=== PATIENT | female | born 1965 | race Two or more races ===

== ENCOUNTER 2023-10-24 10:19 | Emergency (ER) | payer OTHER, SELFPAY ==
[2023-10-24 10:25] VITALS: BP 138/88; PULSE 78; RESP 17; TEMP 36.6; O2SAT 98; BMI 25.1
[2023-10-24 10:36] LABS: Glucose, Whole Blood 417 mg/dL (60-115)
[2023-10-24 10:48] LABS: MANUAL DIFF FLAG NO
[2023-10-24 10:51] LABS: Venous Blood Gas Refer to POC result
[2023-10-24 10:52] LABS: Basophils Percent Auto 0.4 % (0-2); Eosinophils Percent Auto 0.4 % (0-4); Hematocrit 40.8 % (37.0-47.0); Hemoglobin 14.4 g/dl (12.0-16.0); Imm Gran Abs Auto 0.07 X10*3/uL (0.00-0.03); Imm Gran Pct Auto 1.3 % (0.0-0.4); Lymphocytes Absolute Auto 1.2 X10*3/uL (1.2-4.9); Lymphocytes Percent Auto 22.4 % (20-40); Mean Corpuscular HGB Conc 35.3 g/dl (31.0-35.0); Mean Corpuscular Hemoglobin 31.5 pg (27.0-33.0); Mean Corpuscular Volume 89.3 fL (80.0-98.0); Mean Platelet Volume 10.7 fL (9.4-12.3); Monocytes Absolute Auto 0.8 X10*3/uL (0.1-1.2); Monocytes Percent Auto 14.4 % (2-11); Neutrophils Absolute Auto 3.4 x10*3/uL (2.0-8.3); Neutrophils Percent Auto 61.1 % (45-73); Platelet Count 270 X10*3/uL (160-400); Red Blood Count 4.57 X10*6/uL (4.20-5.50); Red Cell Distribution Width 12.4 % (11.0-16.0); White Blood Count 5.5 X10*3/uL (4.8-10.8)
[2023-10-24 10:52] LABS: VBG Base Excess -2.7 mmol/L; VBG HCO3 20 mmol/L (22-26); VBG pCO2 31 mmHg; VBG pH 7.42 (7.32-7.43); VBG pO2 80 mmHg
[2023-10-24 11:04] LABS: Beta-Hydroxybutyrate 2.08 mmol/L (0.02-0.27)
[2023-10-24 11:06] LABS: Anion Gap 18 (12-20); Blood Urea Nitrogen 12 mg/dL (9-16); Calcium 9.3 mg/dL (8.4-10.2); Carbon Dioxide 19 mmol/L (22-29); Chloride 101 mmol/L (96-108); Creatinine Clr Calc Pharmacy 60.4; Estimated Glomerular Filt Rate > 60; Glucose Random 449 mg/dL (60-115); Potassium 4.1 mmol/L (3.3-5.1); Sodium 134 mmol/L (135-145)
[2023-10-24 12:24] LABS: Osmolality, Serum 306 mosm/kg (281-305)
[2023-10-24 16:44] VITALS: BP 131/72; PULSE 77; RESP 16; TEMP 37.2; O2SAT 95
--- NOTE | 2023-10-24 16:59 | ED.GENADULT ---
HPI - General Adult General Chief complaint: Recheck/Abnormal Lab/Rx Stated complaint: High Hemoglobin Level Time Seen by Provider: 10/24/23 16:36 Source: patient, RN notes reviewed and old records reviewed Mode of arrival: ambulatory Limitations: no limitations History of Present Illness HPI narrative: She is 8 female presents for evaluation of ?my hemoglobin is too high and I think I have diabetes. ? Patient reports that she has been feeling off for about 2 months now. She states that she made an appointment with her doctor but is not until the end of October She reports feeling thirsty all the time, having a dry mouth and urinating frequently She went to [facility] yesterday due to vaginal since she had blood work drawn She was told her hemoglobin was over 15 and her blood sugar was high She states that her family members all have diabetes but thus far she has no diagnosis of diabetes She denies any pain anywhere, fevers, chills, cough, chest pain, shortness of breath or abdominal pain Denies any rashes No other complaints or concerns at this time Related Data Previous Rx's Medication Instructions Recorded fluticasone propionate 50 1 spray intranasal DAILY 30 days 01/27/23 mcg/actuation nasal #16 grams spray,suspension (Children's Flonase Allergy Relief) albuterol sulfate 90 mcg/actuation 1 inh inhalation QID PRN shortness 04/09/23 aerosol inhaler (ProAir HFA) of breath or wheezing 30 days #6.7 grams escitalopram oxalate 10 mg tablet 10 mg PO DAILY #30 tabs 06/05/23 meloxicam 15 mg tablet 15 mg PO DAILY #30 tabs 06/05/23 montelukast 10 mg tablet 10 mg PO DAILY #30 tabs 07/05/23 metformin 500 mg tablet 500 mg PO BID #60 tabs 10/24/23 Allergies Allergy/AdvReac Type Severity Reaction Status Date / Time CATS Allergy Unknown Itching Uncoded 10/24/23 10:25 Review of Systems Constitutional: Constitutional: Denies body ache(s), Denies chills, Denies fever(s), Reports malaise and Reports weight loss Eyes: Eyes: Denies blurry vision ENT: Denies sore throat Cardiovascular: Cardiovascular: Denies chest pain Respiratory: Respiratory: Denies cough Gastrointestinal: Gastrointestinal: Denies abdominal pain, Denies nausea and Denies vomiting Genitourinary: Comments: Frequent urination Musculoskeletal: Musculoskeletal: Denies back pain Integumentary/Breasts: Skin/Breast: Reports dry skin and Denies rash Endocrine: Endocrine: Reports polydipsia and Reports polyuria [facility] Social History Social History (System 02/19/21 @ 12:35 by Antoinette Fontana) Advance Directives: No Advance Directives Information Provided: No Physical Exam ED Vital Signs: Vital Signs - 24 hr 10/24/23 10:25 10/24/23 16:44 Temperature 98 F 98.9 F Pulse Rate 78 77 Respiratory Rate 17 16 Blood Pressure 138/88 131/72 Pulse Oximetry 98 95 Oxygen Delivery Method Room Air Room Air BMI result Body Mass Index 25.1 Const General: healthy appearing, comfortable, no acute distress, alert and awake Nutritional Appearance: well nourished Orientation/consciousness: patient oriented x3 HENMT Head: Yes normocephalic and Yes atraumatic Eyes Eyelids: Yes eyelids normal Conjunctivae: conjunctivae normal Sclerae: sclerae normal Corneas: corneas normal Pupils: Equal, round and reactive pupils present EOM: EOMs intact bilaterally Neck Neck: Yes full ROM Resp Effort & Inspection: normal respiratory effort, able to speak in complete sentences and not labored GI Inspection: No distended Palpation (GI): Soft to palpation, not firm, nontender, no guarding and not rigid Skin General skin exam: elasticity normal Neuro General: patient oriented x3 Cranial nerves: Yes Equal, round and reactive pupils present and Yes Bilaterally intact EOM present Cognition (Neuro): normal cognition Extrem Other: Moving all extremities well without any obvious deformities Medical Decision Making Medical Decision Making [facility] Narrative: A 8-year-old female presents for evaluation of elevated high blood sugar from outpatient labs. On repeat labs today her hemoglobin is within normal limits at 14.4 with a normal hematocrit of 40.8. Her chemistries are significant for a glucose of 449, a pseudo hyponatremia of 134 which is within normal limits once corrected for the hyperglycemia. Her CO2 is low at 19 but VBG shows no evidence of acidosis. Her pH is within normal limits. Patient's beta hydroxybutyrate is slightly elevated 2.0 8 however again, her VBG does not show any significant acidosis. Will treat the patient's glucose with IV fluids. She can likely be started on metformin for discharge. There is no obvious source of infection at this time. Differential Diagnosis Differential Diagnoses: The differential diagnosis associated with the presentation includes New onset diabetes Hyperglycemia DKA HHS UTI Admission/Observation Consideration of admission/observation: Escalation of care including admission/observation considered Considered admission for new onset diabetes however the patient was ruled out for DKA Lab Data MDM Lab Attestation statement: I reviewed the patient's lab results. As above, no leukocytosis, anemia. Pseudo hyponatremia, slightly low CO2 level. Hyperglycemia 10/24/23 10:43 10/24/23 10:43 Labs: Lab Results 10/24/23 10/24/23 10/24/23 Range/Units 10:32 10:43 10:46 WBC 5.5 (4.8-10.8) X10*3/uL RBC 4.57 (4.20-5.50) X10*6/uL Hgb 14.4 (12.0-16.0) g/dl Hct 40.8 (37.0-47.0) % MCV 89.3 (80.0-98.0) fL MCH 31.5 (27.0-33.0) pg MCHC 35.3 H (31.0-35.0) g/dl RDW 12.4 (11.0-16.0) % Plt Count 270 (160-400) X10*3/uL MPV 10.7 (9.4-12.3) fL Immature Gran % (Auto) 1.3 H (0.0-0.4) % Neut % (Auto) 61.1 (45-73) % Lymph % (Auto) 22.4 (20-40) % [place] % (Auto) 14.4 H (2-11) % Eos % (Auto) 0.4 (0-4) % Baso % (Auto) 0.4 (0-2) % Lymph # (Auto) 1.2 (1.2-4.9) X10*3/uL [place] # (Auto) 0.8 (0.1-1.2) X10*3/uL Eos # (Auto) 0.0 (0.0-0.4) X10*3/uL Baso # (Auto) 0.0 (0.0-0.2) X10*3/uL Abs Immat Gran (auto) 0.07 H (0.00-0.03) X10*3/uL Absolute Neuts (auto) 3.4 (2.0-8.3) x10*3/uL Absolute Nucleated RBC 0.000 (0.0-0.012) X10*3/uL Nucleated RBC % (auto) 0.0 (0.0-0.2) /100WBC VBG pH 7.42 (7.32-7.43) VBG pCO2 31 mmHg VBG pO2 80 mmHg VBG HCO3 20 L (22-26) mmol/L VBG O2 Saturation 96.0 % VBG Base Excess -2.7 mmol/L Sodium 134 L (135-145) mmol/L Potassium 4.1 (3.3-5.1) mmol/L Chloride 101 (96-108) mmol/L Carbon Dioxide 19 L (22-29) mmol/L Anion Gap 18 (12-20) BUN 12 (9-16) mg/dL Creatinine 0.89 (0.5-1.4) mg/dL Estim Creat Clear Calc 60.4 Estimated GFR > 60 POC Glucose 417 H* (60-115) mg/dL Random Glucose 449 H* (60-115) mg/dL Osmolality Cancelled Calcium 9.3 (8.4-10.2) mg/dL Beta-Hydroxybutyrate 2.08 H (0.02-0.27) mmol/L 10/24/23 Range/Units 12:05 WBC (4.8-10.8) X10*3/uL RBC (4.20-5.50) X10*6/uL Hgb (12.0-16.0) g/dl Hct (37.0-47.0) % MCV (80.0-98.0) fL MCH (27.0-33.0) pg MCHC (31.0-35.0) g/dl RDW (11.0-16.0) % Plt Count (160-400) X10*3/uL MPV (9.4-12.3) fL Immature Gran % (Auto) (0.0-0.4) % Neut % (Auto) (45-73) % Lymph % (Auto) (20-40) % [place] % (Auto) (2-11) % Eos % (Auto) (0-4) % Baso % (Auto) (0-2) % Lymph # (Auto) (1.2-4.9) X10*3/uL [place] # (Auto) (0.1-1.2) X10*3/uL Eos # (Auto) (0.0-0.4) X10*3/uL Baso # (Auto) (0.0-0.2) X10*3/uL Abs Immat Gran (auto) (0.00-0.03) X10*3/uL Absolute Neuts (auto) (2.0-8.3) x10*3/uL Absolute Nucleated RBC (0.0-0.012) X10*3/uL Nucleated RBC % (auto) (0.0-0.2) /100WBC VBG pH (7.32-7.43) VBG pCO2 mmHg VBG pO2 mmHg VBG HCO3 (22-26) mmol/L VBG O2 Saturation % VBG Base Excess mmol/L Sodium (135-145) mmol/L Potassium (3.3-5.1) mmol/L Chloride (96-108) mmol/L Carbon Dioxide (22-29) mmol/L Anion Gap (12-20) BUN (9-16) mg/dL Creatinine (0.5-1.4) mg/dL Estim Creat Clear Calc Estimated GFR POC Glucose (60-115) mg/dL Random Glucose (60-115) mg/dL Osmolality 306 H Calcium (8.4-10.2) mg/dL Beta-Hydroxybutyrate (0.02-0.27) mmol/L Discharge Plan Discharge Clinical Impression: Type 2 diabetes mellitus Patient Disposition: Home, Self-Care Instructions: Type 2 Diabetes in Adults: New Diagnosis (ED) Additional Instructions: You have a new diagnosis of type 2 diabetes Take metformin twice daily Drink lots of water. Avoid excess consumption of sugary foods and complex carbohydrates Follow-up with your primary doctor as soon as possible Prescriptions: New metformin 500 mg tablet 500 mg PO BID Qty: 60 0RF No Action fluticasone propionate [Children's Flonase Allergy Rlf] 50 mcg/actuation spray,suspension 1 spray intranasal DAILY 30 Days Qty: 16 0RF Rx Instructions: administer into each nostril albuterol sulfate [ProAir HFA] 90 mcg/actuation HFA aerosol inhaler 1 inh inhalation QID PRN (Reason: shortness of breath or wheezing) 30 Days Qty: 6.7 6RF escitalopram oxalate 10 mg tablet 10 mg PO DAILY Qty: 30 11RF meloxicam 15 mg tablet 15 mg PO DAILY Qty: 30 11RF montelukast 10 mg tablet 10 mg PO DAILY Qty: 30 6RF
[2023-10-24] MEDS: 0.9 % Sodium Chloride 1,000 ML 999 ML IV ×2 (17:00→18:32)
[2023-10-24 17:10] LABS: Appearance Urine Clear; Color Urine Yellow; Glucose Urine UA >=1000 mg/dL (Negative); Leukocyte Esterase Urine Negative (Negative); Nitrite Urine Negative (Negative); PH 5.5 (5.0-9.0); Specific Gravity - Urine >= 1.030 (1.005-1.025); UMIC TRIGGER UACC YES; Urine Blood Negative (Negative); Urine Ketones 15 mg/dL (Negative); Urine Protein Negative (Neg-Trace)
[2023-10-24 17:12] LABS: UPreg QC Valid YES; Urine Pregnancy NEGATIVE (NEGATIVE)
[2023-10-24 17:32] LABS: Bacteria Urine None Seen (None Seen); Hyaline Casts Urine 0-2 /LPF (0-2); RBC Urine 0-2 /HPF (0-2); Squamous Epithelial Cell Urine 0-2 /HPF (0-2); WBC Urine 0-5 /HPF (0-5)
[2023-10-24 19:39] VITALS: BP 128/84; PULSE 59; RESP 18; TEMP 36.7; O2SAT 97
[2023-10-24 19:47] LABS: Glucose, Whole Blood 332 mg/dL (60-115)
[2023-10-24 20:13] VITALS: BP 131/81; PULSE 59; RESP 18; TEMP 36.4; O2SAT 98
== END 2023-10-24 20:14 | disposition home or self-care (01) ==
PROVIDERS: Physician Assistant Medical; Emergency Provider Internal Medicine; PCP Internal Medicine
DX: E11.65 Type 2 diabetes mellitus with hyperglycemia (principal)
CPT/HCPCS: 36415; 80048; 81001; 81025; 82010; 82803; 82947; 83930; 85025; 96360; 99284

== ENCOUNTER 2023-11-27 16:42 | Outpatient (AMB) | payer OTHER, SELFPAY ==
--- NOTE | 2023-11-27 16:44 | MHC.PC.OV ---
Vital Signs 11/27/23 16:46 11/27/23 17:30 Height 5 ft 2 in Weight 149 lb BMI 27.2 BP 140/88 H 140/90 H Blood Pressure Location Lt brachial Lt brachial Position Sitting Sitting Intake Visit Reasons: Re establish care, unintentional weight loss Food Service Attendant Required: No Accompanied by: Self / Same As Patient Allergies CATS Allergy (Unknown, Uncoded 11/27/23 17:09) Itching Medication List - Last Reconciled 11/27/23 by Pilar Estrada MD albuterol sulfate 90 mcg/actuation (ProAir HFA) 1 inh inhalation QID PRN 30 days diphenhydramine HCl (Banophen) 25 mg PO BEDTIME escitalopram oxalate 10 mg PO DAILY fluticasone propionate 50 mcg/actuation (Children's Flonase Allergy Relief) 1 spray intranasal DAILY 30 days ketoconazole 2% 1 appl topical BID meloxicam 15 mg PO DAILY metformin 500 mg PO BID montelukast 10 mg PO DAILY valacyclovir 1,000 mg PO BID Tobacco use date assessed: 11/27/23 Dental Screening Dental Screen Date: 11/27/23 Did you have a dental visit in the last 12 months?: No Did you have a dental problem in the last 6 months where you did not have access to dental care?: No Was dental information given to patient?: Patient declined HPI HPI Comments History of Present Illness Details This is a 58 year old female with severe major depression without psychotic features, diabetes mellitus type 2, hypertension, asthma and allergic rhinitis that comes today. We will increase escitalopram from 10 mg to 20 mg due to still depression. A1c elevated but she was recently diagnosed with diabetes and this will be repeated for next office visit. Blood pressure borderline normal to elevated and I will start her on lisinopril. Blood pressure will be recheck in 3 weeks by nurse navigator. She use rescue inhaler about once a month. She does have allergic rhinitis and will benefit from nasal spray. [facility] Surgical History (Updated 11/27/23 @ 16:55 by ELIUD Chamberlain) History of section History of cosmetic surgery Family History (Updated 11/27/23 @ 16:57 by ELIUD Chamberlain) Mother Cirrhosis Substance use disorder Father Dementia Social History Housing: Apartment Alcohol intake: never Patient Tobacco Use Status: Former Tobacco user Tobacco use type: Cigarette e-Cigarette/Vaping Use: Never Used Second Hand Smoke Exposure: No service: No Current occupational status: disabled Cognitive needs: No Hearing needs: No Vision needs: No Questionnaire PHQ-9 Over the last 2 weeks, how often have you been bothered by any of the following problems? 1. Little interest or pleasure in doing things: more than half the days 2. Feeling down, depressed, or hopeless: nearly every day 3. Trouble falling or staying asleep, or sleeping too much: nearly every day 4. Feeling tired or having little energy: nearly every day 5. Poor appetite or overeating: nearly every day 6. Feeling bad about yourself - or that you are a failure or have let yourself or your family down: several days 7. Trouble concentrating on things, such as reading the newspaper or watching television: nearly every day 8. Moving or speaking so slowly that other people could have noticed. Or the opposite - being so fidgety or restless that you have been moving around a lot more than usual: nearly every day 9. Thoughts that you would be better off or of hurting yourself in some way: not at all Total score: 21 Depression Screening Interpretation: Positive Depression Screening Follow-up: Existing condition and New Medication prescribed Depression Screening Done: Yes 29444 - PHQ-9 Billing: Yes Source: Developed by Drs. Sami Mcmillan, Idalmis Mora, Maynor Amos and colleagues, with an educational holger from [employer]. Thrive Questionnaire Date Thrive assessed: 11/27/23 I am a: Patient What is your living situation today?: I have a steady place to live Within the past 12 months, did the food you bought not last and you didn't have the money to get more?: Never true Within the past 12 months, did you worry whether your food would run out before you got money to buy more?: Never true Do you have trouble paying for medicines?: No Do you have trouble getting transportation to medical appointments?: No Do you have trouble paying your heating and electricity bill?: No Do you have trouble taking care of your child, family member or friend?: No Do you have trouble with day-to-day activities such as bathing, preparing meals, shopping, managing finances, etc.?: No Are you currently unemployed and looking for a job?: No Are you interested in more education?: No Please select the resources that you would like help with: None Currently or been in a relationship where the following occur: no concerns reported THRIVE Score: 0 AUDIT C Alcohol Use Questionnaire (AUDIT-C) 1. How often do you have a drink containing alcohol?: Never Total Score: 0 STEPHEN-7 AMB Questionnaire STEPHEN-7 Date STEPHEN - 7 assessed: 11/27/23 Feeling nervous, anxious, or on edge: 3 = Nearly every day Not being able to stop or control worryin = Several days Worrying too much about different things: 3 = Nearly every day Trouble relaxin = More than half the days Being so restless that it is hard to sit still: 2 = More than half the days Becoming easily annoyed or irritable: 1 = Several days Feeling afraid as if something awful might happen: 1 = Several days Total STEPHEN-7 score (0-4 normal; 5-9 mild; 10-14 moderate; 15-21 severe): 13 Source: Developed by Drs. Sami Mcmillan, Idalmis Mora, Maynor Amos and colleagues, with an educational holger from [employer]. STEPHEN-7 Assessment Billing STEPHEN-7 Assessment Tool: STEPHEN-7 Assessment 13594 Review of Systems Const All systems reviewed & are unremarkable except as noted in HPI and below Eyes Reports no additional complaints, Denies change in vision and Denies other visual disturbances Card Denies chest pain at rest, Denies chest pain with activity, Denies edema, Denies irregular heart rhythm, Denies claudication, Denies dyspnea, Denies dyspnea on exertion, Denies orthopnea, Denies paroxysmal nocturnal dyspnea and Denies slow heart rate Resp Denies cough, Denies dyspnea and Denies dyspnea on exertion GI Denies abdominal pain, Denies change in bowel habits, Denies excessive flatus, Denies nausea and Denies vomiting Denies urinary incontinence, Denies urinary hesitancy and Denies urinary urgency Physical exam (Primary Care) Vital Signs: Last Vital Signs BP 140/90 H 11/27/23 17:30 BMI result Body Mass Index 27.2 Tobacco/Smoking Status: Tobacco use Status Tobacco use date assessed 11/27/23 11/27/23 17:01 Patient Tobacco Use Status Former Tobacco user 11/27/23 17:01 Tobacco use type Cigarette 11/27/23 17:01 e-Cigarette/Vaping Use Never Used 11/27/23 17:01 PHQ-9: PHQ-9 Score PHQ-9: Total score 21 11/27/23 17:30 Depression Screening Interpretation: Positive Depression Screening Follow-up: Existing condition and New Medication prescribed Thrive Assessment: Date of Thrive Assessment Date Thrive assessed 11/27/23 11/27/23 17:01 Currently or been in a relationship where the following occur: no concerns reported Resp Effort & Inspection: normal respiratory effort Auscultation: clear to auscultation bilaterally Cardio Jugular venous distension: no JVD Rate: regular rate Rhythm: regular rhythm Heart sounds: S1 normal heart sound present and S2 normal heart sound present Extrem General: Yes full ROM Results AMB Hemoglobin A1c AMB Hemoglobin A1c 13.6 % Last Edit by ELIUD Chamberlain on 11/27/23 17:28 Results Reviewed Results Reviewed: Laboratory Last Values Hgb A1c (Clinic) 13.6 % (4.0-6.0) H 11/27/23 17:25 Assessment and Plan Assessment & Plan (1) Diabetes mellitus: Code(s): E11.9 - Type 2 diabetes mellitus without complications Plan: Continue metformin. A1c goal is equal or less than 7%. (2) Essential hypertension: Code(s): I10 - Essential (primary) hypertension Plan: Start lisinopril. Blood pressure goal is equal or less than 130/80. (3) Asthma: Code(s): J45.909 - Unspecified asthma, uncomplicated Plan: Use rescue inhaler as needed. (4) Allergic rhinitis: Code(s): J30.9 - Allergic rhinitis, unspecified Plan: Start Flonase as needed. (5) Severe major depression without psychotic features: Code(s): F32.2 - Major depressive disorder, single episode, severe without psychotic features Plan: Increase escitalopram to 20 mg. Orders: Orders AMB Hemoglobin A1c 11/27/23 E11.9 - Type 2 diabetes mellitus without complications Microalbumin, Random (w Creat) 11/27/23 E11.9 - Type 2 diabetes mellitus without complications Comprehensive [place]. Panel Fast 03/28/24 E11.9 - Type 2 diabetes mellitus without complications Lipid Panel 11/27/23 E78.5 - Hyperlipidemia, unspecified Medications: New lisinopril 5 mg PO DAILY 90 days 90 tabs 1RF I10 - Essential (primary) hypertension escitalopram oxalate 20 mg PO BEDTIME 90 days 90 tabs 1RF F32.2 - Major depressive disorder, single episode, severe without psychotic features blood sugar diagnostic (FreeStyle Lite Strips) Use 1 test strip once a day 100 ea 1RF E11.9 - Type 2 diabetes mellitus without complications fluticasone propionate 50 mcg/actuation (Flonase Allergy Relief) administer into each nostril 1 spray intranasal DAILY 30 days 16 grams 6RF blood-glucose meter (FreeStyle Lite Meter kit) As directed 1 ea 0RF E11.9 - Type 2 diabetes mellitus without complications lancets (FreeStyle Lancets) Use 1 lancet once a day 100 ea 1RF E11.9 - Type 2 diabetes mellitus without complications Changed From metformin 500 mg PO BID 60 tabs 0RF E11.9 - Type 2 diabetes mellitus without complications To metformin 500 mg PO BID 90 days 180 tabs 0RF E11.9 - Type 2 diabetes mellitus without complications Discontinued escitalopram oxalate Discontinued Reason: No Longer Medically Relevant 10 mg PO DAILY 30 tabs 11RF Coding Level of Care Code Est Pt Level 4 (56460) Diagnoses Diabetes mellitus E11.9 Essential hypertension I10 Asthma J45.909 Allergic rhinitis J30.9 Severe major depression without psychotic features F32.2 Additional Codes STEPHEN-7 Assessment Billing - STEPHEN-7 Assessment Tool: STEPHEN-7 Assessment 17724 ([id number]) Time Spent (min) 24
[2023-11-27 16:46] VITALS: BP 140/88; BMI 27.2
[2023-11-27 17:30] VITALS: BP 140/90
== END 2023-11-27 17:14 | disposition home or self-care (01) ==
PROVIDERS: PCP Internal Medicine; Visit Provider Internal Medicine
DX: E11.9 Type 2 diabetes mellitus without complications (principal); F32.2 Major depressive disorder, single episode, severe without psychotic features; I10 Essential (primary) hypertension; J45.909 Unspecified asthma, uncomplicated; J30.9 Allergic rhinitis, unspecified
CPT/HCPCS: 83036; 96127; 99214

== ENCOUNTER 2024-04-06 16:40 | Outpatient (AMB) | payer OTHER, SELFPAY ==
--- NOTE | 2024-04-06 16:55 | A.OFFPC_ITS ---
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: No Accompanied by: Self / Same As Patient Allergies CATS Allergy (Unknown, Uncoded 04/06/24 17:36) Itching Medication List - Last Reconciled 04/06/24 by Pilar Estrada MD albuterol sulfate 90 mcg/actuation (ProAir HFA) 1 inh inhalation QID PRN 30 days blood sugar diagnostic (FreeStyle Lite Strips) Use 1 test strip once a day blood-glucose meter (FreeStyle Lite Meter kit) As directed diphenhydramine HCl (Banophen) 25 mg PO BEDTIME escitalopram oxalate 20 mg PO BEDTIME 90 days fluticasone propionate 50 mcg/actuation (Flonase Allergy Relief) 1 spray intranasal DAILY 30 days ketoconazole 2% 1 appl topical BID lancets (FreeStyle Lancets) Use 1 lancet once a day lisinopril 5 mg PO DAILY 90 days meloxicam 15 mg PO DAILY metformin 500 mg PO BID 90 days montelukast 10 mg PO DAILY sennosides (senna) 8.6 mg PO BEDTIME PRN 90 days valacyclovir 1,000 mg PO BID Tobacco use date assessed: 11/27/23 Dental Screening Dental Screen Date: 11/27/23 HPI HPI Comments History of Present Illness Details This is a 59-year-old female with diabetes mellitus type 2, hypertension, chronic idiopathic constipation and severe major depression without psychotic features that comes today for follow-up on her conditions. A1c elevated and I will start her on insulin and increase metformin. A1c goal is equal or less than 7%. Blood pressure stable. Lipid panel will be order and her LDL goal should be less than 70. Constipation stable with senna. Depression well controlled with escitalopram and this is follow by Psychiatry. No chest pain or shortness on breath. Complains of melasma in face. [facility] Surgical History History of section History of cosmetic surgery Family History Mother Cirrhosis Substance use disorder Father Dementia Social History Housing: Apartment Alcohol intake: never Patient Tobacco Use Status: Former Tobacco user Tobacco use type: Cigarette e-Cigarette/Vaping Use: Never Used Second Hand Smoke Exposure: No service: No Current occupational status: disabled Cognitive needs: No Hearing needs: No Vision needs: No Questionnaire Thrive Questionnaire Date Thrive assessed: 11/27/23 STEPHEN-7 AMB Questionnaire STEPHEN-7 Date STEPHEN - 7 assessed: 11/27/23 Source: Developed by Drs. Sami Mcmillan, Idalmis Mora, Maynor Amos and colleagues, with an educational holger from [employer]. Review of Systems Const All systems reviewed & are unremarkable except as noted in HPI and below Card Denies chest pain at rest, Denies chest pain with activity, Denies edema, Denies irregular heart rhythm, Denies claudication, Denies dyspnea, Denies dyspnea on exertion, Denies orthopnea, Denies paroxysmal nocturnal dyspnea and Denies slow heart rate Resp Denies cough, Denies dyspnea and Denies dyspnea on exertion GI Denies abdominal pain, Denies change in bowel habits, Denies excessive flatus, Denies nausea and Denies vomiting Denies urinary incontinence, Denies urinary hesitancy and Denies urinary urgency Physical exam (Primary Care) Vital Signs: Last Vital Signs BP 126/80 04/06/24 16:56 BMI result Body Mass Index 29.8 Tobacco/Smoking Status: Tobacco use Status Tobacco use date assessed 11/27/23 04/06/24 17:01 Patient Tobacco Use Status Former Tobacco user 04/06/24 17:01 Tobacco use type Cigarette 04/06/24 17:01 e-Cigarette/Vaping Use Never Used 04/06/24 17:01 Thrive Assessment: Date of Thrive Assessment Date Thrive assessed 11/27/23 04/06/24 17:01 Resp Effort & Inspection: normal respiratory effort Auscultation: clear to auscultation bilaterally Cardio Jugular venous distension: no JVD Rate: regular rate Rhythm: regular rhythm Heart sounds: S1 normal heart sound present and S2 normal heart sound present Extrem General: Yes full ROM Results AMB Hemoglobin A1c AMB Hemoglobin A1c 13.1 % Last Edit by ELIUD Chamberlain on 04/06/24 17: 10 Results Reviewed Results Reviewed: Laboratory Last Values Hgb A1c (Clinic) 13.1 % (4.0-6.0) H 04/06/24 16:55 Assessment and Plan Assessment & Plan (1) Diabetes mellitus: Code(s): E11.9 - Type 2 diabetes mellitus without complications Qualifiers: Diabetes mellitus type: type 2 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 Start Lantus. A1c goal is equal or less than 7%. (2) Essential hypertension: Code(s): I10 - Essential (primary) hypertension Plan: Continue lisinopril. Blood pressure goal is equal or less than 130/80. (3) Severe major depression without psychotic features: Code(s): F32.2 - Major depressive disorder, single episode, severe without psychotic features Plan: Continue escitalopram. Follow-up with psychiatry. (4) Chronic idiopathic constipation: Code(s): K59.04 - Chronic idiopathic constipation Plan: Continue senna as needed. Orders: Orders AMB Hemoglobin A1c Today E11.9 - Type 2 diabetes mellitus without complications Microalbumin, Random (w Creat) Today E11.9 - Type 2 diabetes mellitus without complications Lipid Panel Today E78.5 - Hyperlipidemia, unspecified Comprehensive [place]. Panel Fast Today E11.9 - Type 2 diabetes mellitus without complications MM screening mammo BI Today Z12.31 - Encounter for screening mammogram for malignant neoplasm of breast Medications: New metformin 1,000 mg PO BID 90 days 180 tabs 1RF insulin glargine (Lantus Solostar U-100 Insulin) 10 units (0.1 mL) subcut QPM 90 days 9 mL 0RF E11.9 - Type 2 diabetes mellitus without complications hydroquinone 4% 1 appl topical DAILY 30 days 28.4 grams 1RF pen needle, diabetic (1st Tier Unifine Pentips) Use 1 pen needle at bedtime 100 ea 1RF E11.9 - Type 2 diabetes mellitus without complications pen needle, diabetic (1st Tier Unifine Pentips) Use 1 pen needle 100 ea 1RF E11.9 - Type 2 diabetes mellitus without complications Refilled sennosides (senna) 8.6 mg PO BEDTIME 90 days PRN 90 tabs 0RF constipation Discontinued metformin Discontinued Reason: Patient Completed Course 500 mg PO BID 90 days 180 tabs 0RF E11.9 - Type 2 diabetes mellitus without complications Coding Level of Care Code Est Pt Level 4 (09020) Complex EM visit Add On G2211 Diagnoses Type 2 diabetes mellitus with hyperglycemia, without long-term current use of insulin E11.65 Diabetes mellitus type: type 2 Diabetes mellitus penitentiary insulin use: without penitentiary use Diabetes mellitus complication status: with hyperglycemia Essential hypertension I10 Severe major depression without psychotic features F32.2 Chronic idiopathic constipation K59.04 Time Spent (min) 23
[2024-04-06 16:56] VITALS: BP 126/80; BMI 29.8
== END 2024-04-06 17:42 | disposition home or self-care (01) ==
PROVIDERS: PCP Internal Medicine; Visit Provider Internal Medicine
DX: E11.65 Type 2 diabetes mellitus with hyperglycemia (principal); I10 Essential (primary) hypertension; F32.2 Major depressive disorder, single episode, severe without psychotic features; K59.04 Chronic idiopathic constipation; E11.9 Type 2 diabetes mellitus without complications
CPT/HCPCS: 83036; 99214; G2211

== ENCOUNTER 2024-04-29 10:30 | Outpatient (REF) | payer OTHER, SELFPAY ==
--- NOTE | ~2024-04-29 | MM_ITS ---
EXAMINATION: MM SCREENING DIGITAL BREAST TOMOSYNTHESIS, BILATERAL CLINICAL INFORMATION: Screening. Asymptomatic. COMPARISON: Mammography: Comparison is made with available priors TECHNIQUE: Digital breast tomosynthesis is performed in both the craniocaudal and mediolateral oblique views along with computer-aided detection (CAD). Synthesized 2D images are generated from the tomosynthesis. FINDINGS: There are scattered areas of fibroglandular density (ACR BI-RADS breast composition Category b). There are no significant masses, abnormal calcifications, or other abnormalities. MM/MM tomosynthesis screening BI IMPRESSION: No mammographic evidence of malignancy. ASSESSMENT: BI-RADS BI-RADS 1 - Negative RECOMMENDATION: Routine annual mammography screening. 1 year F/U This examination should not preclude the clinical evaluation of a suspicious palpable abnormality. This patient's information was entered into a reminder system with a target due date for their next mammogram. Electronically signed by: Claudia Mendoza DO 05/21/2024 09:16 PM EDT
== END 2024-04-29 10:31 | disposition home or self-care (01) ==
LOC: HO.MAMMO 10:30
PROVIDERS: PCP Internal Medicine; Visit Provider Internal Medicine
DX: Z12.31 Encounter for screening mammogram for malignant neoplasm of breast (principal)
CPT/HCPCS: 77063; 77067

== ENCOUNTER → 2024-04-29 12:45 | Outpatient (BNV) | payer OTHER, SELFPAY | PROVIDERS: PCP Internal Medicine; Visit Provider Internal Medicine | DX: Z12.31 Encounter for screening mammogram for malignant neoplasm of breast (principal) | CPT/HCPCS: 77063; 77067 ==

== ENCOUNTER 2024-08-05 13:41 | Outpatient (AMB) | payer OTHER, SELFPAY ==
--- NOTE | 2024-08-05 13:46 | A.OFFPC_ITS ---
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 Accompanied by: Self / Same As Patient Allergies CATS Allergy (Unknown, Uncoded 08/05/24 14:01) Itching Medication List - Last Reconciled 08/05/24 by Pilar Estrada MD albuterol sulfate 90 mcg/actuation (ProAir HFA) 1 inh inhalation QID PRN 30 days blood sugar diagnostic (FreeStyle Lite Strips) Use 1 test strip once a day blood-glucose meter (FreeStyle Lite Meter kit) As directed diphenhydramine HCl (Banophen) 25 mg PO BEDTIME escitalopram oxalate 20 mg PO BEDTIME 90 days fluticasone propionate 50 mcg/actuation (Flonase Allergy Relief) 1 spray intranasal DAILY 30 days hydroquinone 4% 1 appl topical DAILY 30 days insulin glargine (Lantus Solostar U-100 Insulin) 10 units (0.1 mL) subcut QPM 90 days ketoconazole 2% 1 appl topical BID lancets (FreeStyle Lancets) Use 1 lancet once a day lisinopril 5 mg PO DAILY 90 days meloxicam 15 mg PO DAILY metformin 1,000 mg PO BID 90 days montelukast 10 mg PO DAILY pen needle, diabetic (1st Tier Unifine Pentips) Use 1 pen needle at bedtime sennosides (senna) 8.6 mg PO BEDTIME PRN 90 days valacyclovir 1,000 mg PO BID Tobacco use date assessed: 11/27/23 Dental Screening Dental Screen Date: 11/27/23 HPI HPI Comments History of Present Illness Details The patient is a 59-year-old female presenting with Type 2 Diabetes Mellitus. The patient reports difficulty in controlling her blood sugar levels, with a recent Hemoglobin A1c of 12.6%, indicating poor glucose management. The patient is currently on 10 units of Lantus once daily, with plans to increase to 15 units. Although she does not currently see an core composer machine tender, a referral was discussed for further diabetes management. In terms of her hypertension, she takes 5 mg of Lisinopril once daily. Additionally, the patient has a history of depression, anxiety, and insomnia, which are managed with Escitalopram 20 mg at bedtime. Recent emotional factors are heightened due to a personal situation involving her pet, which has affected her mood. For allergies, including allergic rhinitis exacerbated by cats, she uses a nasal spray as needed and reports pruritus as a reaction to cats, which are a known allergen for her. The patient ceased smoking years ago and only exp eriences wheezing related to cat exposure. COUNT INCLUDES THE [facility] Surgical History History of section History of cosmetic surgery Family History Mother Cirrhosis Substance use disorder Father Dementia Social History Housing: Apartment Alcohol intake: never Patient Tobacco Use Status: Former Tobacco user Tobacco use type: Cigarette e-Cigarette/Vaping Use: Never Used Second Hand Smoke Exposure: No service: No Current occupational status: disabled Cognitive needs: No Hearing needs: No Vision needs: No Questionnaire Thrive Questionnaire Date Thrive assessed: 11/27/23 STEPHEN-7 AMB Questionnaire STEPHEN-7 Date STEPHEN - 7 assessed: 11/27/23 Source: Developed by Drs. Sami Mcmillan, Idalmis Mora, Maynor Amos and colleagues, with an educational holger from [employer]. Review of Systems Const Details: - Respiratory: Reports occasional sneezing - Dermatological: Reports seasonal discoloration and large pores leading to cosmetic concerns - Emotional: Reports increased emotional distress due to personal circumstances Physical exam (Primary Care) Vital Signs: Last Vital Signs BP 120/72 08/05/24 13:47 BMI result Body Mass Index 29.4 Tobacco/Smoking Status: Tobacco use Status Tobacco use date assessed 11/27/23 08/05/24 13:55 Patient Tobacco Use Status Former Tobacco user 08/05/24 13:55 Tobacco use type Cigarette 08/05/24 13:55 e-Cigarette/Vaping Use Never Used 08/05/24 13:55 Thrive Assessment: Date of Thrive Assessment Date Thrive assessed 11/27/23 08/05/24 13:55 Const Other: General: No confusion Respiratory: Normal respiratory effort, clear to auscultation bilaterally Cardiovascular: No jugular venous distension, regular rate, regular rhythm, S1 normal heart sound present and S2 normal heart sound present Extremities: Full ROM Skin: Melasma in face Psychology: Grossly normal, patient is emotional due to personal circumstances Results AMB Hemoglobin A1c AMB Hemoglobin A1c 12.6 % Last Edit by ELIUD Chamberlain on 08/05/24 13: 59 Results Reviewed Results Reviewed: Laboratory Last Values Hgb A1c (Clinic) 12.6 % (4.0-6.0) H 08/05/24 13:45 Coding Level of Care Code Est Pt Level 4 (83218) Complex EM visit Add On G2211 Diagnoses Uncontrolled diabetes mellitus with hyperglycemia, with long-term current use of insulin E11.65; Z79.4 Mild major depression F32.0 Melasma L81.1 Allergic rhinitis J30.9 Essential hypertension I10 Time Spent (min) 23 Assessment & Plan Assessment & Plan (1) Uncontrolled diabetes mellitus with hyperglycemia, with long-term current use of insulin: Code(s): E11.65 - Type 2 diabetes mellitus with hyperglycemia; Z79.4 - half-way (current) use of insulin Category: Medical (2) Mild major depression: Code(s): F32.0 - Major depressive disorder, single episode, mild Category: Medical (3) Melasma: Code(s): L81.1 - Chloasma Category: Medical (4) Allergic rhinitis: Code(s): J30.9 - Allergic rhinitis, unspecified Category: Medical (5) Essential hypertension: Code(s): I10 - Essential (primary) hypertension Category: Medical Plan - Type 2 Diabetes Mellitus: Increase the dose of Lantus to 15 units daily. Blood work to be done to check cholesterol, kidneys, and liver function. Referral to an core composer machine tender for specialized diabetes management. - Allergic Rhinitis and Cat Allergy: Continue using nasal spray as needed. Hydroquinone cream was ordered and to be used as directed. - Depression and Anxiety: Continue Escitalopram 20 mg at bedtime. Monitor emotional state, particularly related to current distress from pet issues. - Hypertension: Continue Lisinopril 5 mg daily. Patient was informed and verbally consented to the use of an ambient scribe for clinic note documentation during this visit. During the visit, we discussed the elevation in HbA1c and the need to improve glycemic control. I recommend increasing the Lantus dosage to 15 units and pursuing a referral to an core composer machine tender. Blood tests have been ordered to assess her overall metabolic state, including kidney and liver function. We spoke about the emotional stress linked to the situation with her cat, acknowledging its impact on her mental health. I reaffirmed continuing Escitalopram for managing depression and anxiety. For allergy management, we reviewed the use of her nasal spray and discussed the use of the recently ordered hydroquinone cream. The patient is advised on comprehensive diabetes care alongside monitoring her emotional health due to recent personal stressors. Orders: Orders AMB Hemoglobin A1c Today E11.65 - Type 2 diabetes mellitus with hyperglycemia Lipid Panel Today E78.5 - Hyperlipidemia, unspecified Comprehensive Met. Panel Today E11.65 - Type 2 diabetes mellitus with hypergl ycemia Microalbumin, Random (w Creat) Today R80.9 - Proteinuria, unspecified Referrals Endocrinology Referral E11.65 - Type 2 diabetes mellitus with hyperglycemia Medications: Changed From insulin glargine (Lantus Solostar U-100 Insulin) 10 units (0.1 mL) subcut QPM 90 days 9 mL 0RF E11.9 - Type 2 diabetes mellitus without complications To insulin glargine (Lantus Solostar U-100 Insulin) 15 units (0.15 mL) subcut QPM 90 days 13.5 mL 0RF E11.9 - Type 2 diabetes mellitus without complications Refilled hydroquinone 4% 1 appl topical DAILY 30 days 28.4 grams 1RF Patient Instructions: - Increase Lantus dosage to 15 units daily as prescribed. - Schedule and complete blood work as ordered before the next visit. - Continue taking Escitalopram 20 mg at bedtime for depression and anxiety. - Utilize nasal spray as needed for allergic rhinitis. - Follow up with endocrinology once the referral is completed. - Monitor emotional wellbeing, reach out if distress increases. - Apply hydroquinone cream as directed. - Avoid cat exposure where possible to minimize allergic reactions.
[2024-08-05 13:47] VITALS: BP 120/72; BMI 29.4
== END 2024-08-05 14:14 | disposition home or self-care (01) ==
PROVIDERS: PCP Internal Medicine; Visit Provider Internal Medicine
DX: E11.65 Type 2 diabetes mellitus with hyperglycemia (principal); Z79.4 Long term (current) use of insulin; F32.0 Major depressive disorder, single episode, mild; L81.1 Chloasma; J30.9 Allergic rhinitis, unspecified; I10 Essential (primary) hypertension

== ENCOUNTER → 2024-08-05 13:41 | Outpatient (BNVA) | payer OTHER, SELFPAY | PROVIDERS: PCP Internal Medicine; Visit Provider Internal Medicine | DX: E11.65 Type 2 diabetes mellitus with hyperglycemia (principal); Z79.4 Long term (current) use of insulin; L81.1 Chloasma; J30.9 Allergic rhinitis, unspecified; I10 Essential (primary) hypertension | CPT/HCPCS: 83036; 99212 ==

== ENCOUNTER 2024-08-27 12:28 | Outpatient (AMB) | payer OTHER, SELFPAY ==
--- NOTE | 2024-08-27 12:36 | A.OFFVIS_ITS ---
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 change q 10 days diphenhydramine HCl (Banophen) 25 mg PO BEDTIME escitalopram oxalate 20 mg PO BEDTIME 90 days fluticasone propionate 50 mcg/actuation (Flonase Allergy Relief) 1 spray intranasal DAILY 30 days glucose (Dex4 Glucose) 16 grams (4 x 4 gram) PO Q15M PRN hydroquinone 4% 1 appl topical DAILY 30 days insulin glargine (Lantus Solostar U-100 Insulin) 25 units (0.25 mL) subcut QPM 90 days insulin lispro (Humalog KwikPen (U-100) Insulin) 3 units (0.03 mL) subcut TID ketoconazole 2% 1 appl topical BID lancets (FreeStyle Lancets) Use 1 lancet once a day lisinopril 5 mg PO DAILY 90 days meloxicam 15 mg PO DAILY metformin 1,000 mg PO BID 90 days montelukast 10 mg PO DAILY pen needle, diabetic (1st Tier Unifine Pentips) Use 4 pen needle daily as directed sennosides (senna) 8.6 mg PO BEDTIME PRN 90 days valacyclovir 1,000 mg PO BID HPI HPI Type 2 diabetes mellitus with hyperglycemia: Details: Patient is a 59-year-old female with a significant past medical history of depression, hypertension, and uncontrolled type 2 diabetes. DM: Was diagnosed with diabetes in October. Last A1c was 12.6. Her diabetes is currently managed with Lantus 15 units, metformin 1000 mg twice a day. When she was first diagnosed she was started on metformin at initial diagnosis and then shortly thereafter started on Lantus 10 units. She recently had the dosage increase to 15 units. She tolerates the lantus and metformin without difficulty. She checks her blood sugars 1x a day but up to 3-4x. She wakes up with blood sugars between 200-300. She states that there are days where her blood sugars are well above 400 and sometimes the reader just says high. She does not have a cgm. She does often have symptoms of hyperglycemia including polyuria, polydipsia and vision changes. She is currently asymptomatic in her blood sugars 211 in the office. Denies having said this of hypoglycemia but states in the last year she has not had a normal blood sugar. She states when she was diagnosed it is because she presented with significant increased thirst and weight loss. She has not yet had any diabetic Education. She states she has a fam hx of dm but does not know if it is t1dm or t2dm. 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 CV: Blood pressure today in the office is 118/74. She is on lisinopril 5 mg. She states that her cholesterol has been diet controlled but she is overdue for cholesterol her last lipid panel was in 2019. REPLACED BY [facility] Surgical History (Updated 08/27/24 @ 12:45 by ELIUD Rehman) History of phacoemulsification of cataract of both eyes with intraocular lens implantation Hx of cataract surgery History of section History of cosmetic surgery Family History Mother Cirrhosis Substance use disorder Father Dementia Social History Housing: Apartment Alcohol intake: never Patient Tobacco Use Status: Former Tobacco user Tobacco use type: Cigarette e-Cigarette/Vaping Use: Never Used Second Hand Smoke Exposure: No service: No Current occupational status: disabled Cognitive needs: No Hearing needs: No Vision needs: No Physical Exam Vital Signs: Last Vital Signs Pulse 70 08/27/24 12:42 BP 118/74 08/27/24 12:42 BMI result Body Mass Index 29.8 Const Orientation/consciousness: patient oriented x3 Neck Neck: Yes no lymphadenopathy Thyroid: Thyroid normal Carotids: no bruits Resp Auscultation: clear to auscultation bilaterally Cardio Rate: regular rate Rhythm: regular rhythm Heart sounds: S1 normal heart sound present and S2 normal heart sound present Peripheral pulses: dorsalis pedis present Neuro General: patient oriented x3, gait normal and no focal motor deficits Extrem Other: Monofilament sensation intact bilaterally. Vibratory sensation intact bilaterally. Skin intact. General: Yes normal to inspection Office Procedures Glucose Monitoring Details Details: g7 applied to her arm, reviewed how to use it, downloaded hamida for her and went through instructions with her. 18134 - Glucose Monitoring, continuous Procedure code (CPT) selection complete Results Reviewed Results Reviewed: Laboratory Last Values Glucose (Clinic) 211 mg/dL (60-115) H 08/27/24 12:49 Laboratory Tests 10/30/18 10/24/23 11/27/23 16:06 10:43 17:25 Sodium 134 L Potassium 4.1 Chloride 101 Carbon Dioxide 19 L Anion Gap 18 BUN 12 Creatinine 0.89 Estim Creat Clear Calc 60.4 Estimated GFR > 60 Glucose (Clinic) Hgb A1c (Clinic) 13.6 H Triglycerides 246 Cholesterol 265 LDL Cholesterol, Calc 170 HDL Cholesterol 46 04/06/24 08/05/24 08/27/24 16:55 13:45 12:49 Sodium Potassium Chloride Carbon Dioxide Anion Gap BUN Creatinine Estim Creat Clear Calc Estimated GFR Glucose (Clinic) 211 H Hgb A1c (Clinic) 13.1 H 12.6 H Triglycerides Cholesterol LDL Cholesterol, Calc HDL Cholesterol Assessment & Plan Assessment & Plan (1) Uncontrolled diabetes mellitus with hyperglycemia, with long-term current use of insulin: Code(s): E11.65 - Type 2 diabetes mellitus with hyperglycemia; Z79.4 - half-way (current) use of insulin Category: Medical Plan: We spent 75 min in [id number] time today discussing the pathophysiology of diabetes, the differences between type 1 and type 2 diabetes and complications associated with diabetes including but not limited to blindness, kidney disease, amputations, increased risk of infections, heart disease, strokes etc.. We reviewed signs and symptoms of hyper and hypoglycemia. Discussed rule of 15. Glucose tabs were ordered. We will increase Lantus to 25 units. We will start Humalog 3 units with meals. Continue with the metformin. I did give her a Dexcom today in the office. I set the G7 up for her an applied it to her arm. I downloaded the hamida with her on her iPhone today. Supplies were sent to the pharmacy. Labs to rule out type 1 ordered. I have referred her to diabetic Education. I will bring her back short term in a couple of weeks to be reassessed. Sooner if needed. (2) Essential hypertension: Code(s): I10 - Essential (primary) hypertension Category: Medical Plan: WNL. Continue current regimen Orders: Orders B Type Natriuretic Peptide Today E11.65 - Type 2 diabetes mellitus with hyperglycemia, I10 - Essential (primary) hypertension, Z79.4 - half-way (current) use of insulin Comprehensive Met. Panel Today E11.65 - Type 2 diabetes mellitus with hyperglycemia, I10 - Essential (primary) hypertension, Z79.4 - moth exterminator (current) use of insulin Islet Cell Antibody Scrn/Titer Today E11.65 - Type 2 diabetes mellitus with hyperglycemia, I10 - Essential (primary) hypertension, Z79.4 - half-way (current) use of insulin Glutamic acid decarboxylase Ab Today E11.65 - Type 2 diabetes mellitus with hyperglycemia, I10 - Essential (primary) hypertension, Z79.4 - half-way (current) use of insulin C Peptide Today E11.65 - Type 2 diabetes mellitus with hyperglycemia, I10 - Essential (primary) hypertension, Z79.4 - half-way (current) use of insulin Referrals Diabetes Education Referral E11.65 - Type 2 diabetes mellitus with hyperglycemia, Z79.4 - half-way (current) use of insulin Medications: New insulin lispro (Humalog KwikPen (U-100) Insulin) 3 units (0.03 mL) subcut TID 15 mL 1RF blood-glucose sensor (Dexcom G7 Sensor device) Use daily As directed to monitor glucose. change q 10 days 3 ea 5RF E11.65 - Type 2 diabetes mellitus with hyperglycemia, Z79.4 - half-way (current) use of insulin glucose (Dex4 Glucose) until symptoms of low blood sugar are controlled 16 grams (4 x 4 gram) PO Q15M PRN 100 tabs 0RF hypoglycemia insulin lispro (Humalog KwikPen (U-100) Insulin) with breakfast, lunch and supper 3 units (0.03 mL) subcut TID 15 mL 1RF Changed From insulin glargine (Lantus Solostar U-100 Insulin) 15 units (0.15 mL) subcut QPM 90 days 13.5 mL 0RF E11.9 - Type 2 diabetes mellitus without complications To insulin glargine (Lantus Solostar U-100 Insulin) 25 units (0.25 mL) subcut QPM 22.5 mL 0RF 90 days E11.9 - Type 2 diabetes mellitus without complications From pen needle, diabetic (1st Tier Unifine Pentips) Use 1 pen needle at bedtime 100 ea 1RF E11.9 - Type 2 diabetes mellitus without complications To pen needle, diabetic (1st Tier Unifine Pentips) Use 4 pen needle daily as directed 100 ea 1RF E11.9 - Type 2 diabetes mellitus without complications Coding Level of Care Code New Pt Level 5 (40001) Diagnoses Uncontrolled diabetes mellitus with hyperglycemia, with long-term current use of insulin E11.65; Z79.4 Essential hypertension I10 CPT Codes Details - CPT: 77480 - Glucose Monitoring, continuous ([id number])
[2024-08-27 12:42] VITALS: BP 118/74; PULSE 70; BMI 29.8
[2024-08-27 12:56] LABS: Glucose, Whole Blood 211 mg/dL (60-115)
== END 2024-08-27 13:38 | disposition home or self-care (01) ==
PROVIDERS: PCP Internal Medicine; Visit Provider Physician Assistant
DX: E11.65 Type 2 diabetes mellitus with hyperglycemia (principal); Z79.4 Long term (current) use of insulin; I10 Essential (primary) hypertension

== ENCOUNTER 2024-08-27 12:28 | Outpatient (REF) | payer OTHER, SELFPAY ==
[2024-08-27 15:10] LABS: B Type Natriuretic Peptide 80 pg/mL (<100)
[2024-08-27 16:27] LABS: Alanine Aminotransferase 23 U/L (0-31); Albumin Level 4.1 g/dL (3.5-5.0); Alkaline Phosphatase 79 U/L (39-117); Anion Gap 14 (12-20); Aspartate Amino Transferase 21 U/L (5-31); Bilirubin Total 0.4 mg/dL (0.0-1.0); Blood Urea Nitrogen 13 mg/dL (9-16); Calcium 9.3 mg/dL (8.4-10.2); Carbon Dioxide 27 mmol/L (22-29); Chloride 102 mmol/L (96-108); Estimated Glomerular Filt Rate > 60; Glucose Random 173 mg/dL (60-115); Potassium 4.2 mmol/L (3.3-5.1); Sodium 139 mmol/L (135-145); Total Protein 7.6 g/dL (6.5-8.0)
[2024-08-29 06:43] LABS: C Peptide 1.35 ng/mL (0.80-3.85)
[2024-08-31 13:39] LABS: Glutamic acid decarboxylase Ab <5 IU/mL (<5)
[2024-08-31 15:54] LABS: Islet Cell Antibody Screen NEGATIVE (NEGATIVE)
== END 2024-08-27 12:29 | disposition home or self-care (01) ==
LOC: HO.LAB 12:28
PROVIDERS: PCP Internal Medicine; Visit Provider Physician Assistant
DX: E11.65 Type 2 diabetes mellitus with hyperglycemia (principal); Z79.4 Long term (current) use of insulin; I10 Essential (primary) hypertension
CPT/HCPCS: 36415; 80053; 82947; 83880; 84681; 86341; 95250; 99202

== ENCOUNTER 2024-09-10 13:28 | Outpatient (AMB) | payer OTHER, SELFPAY ==
[2024-09-10 13:37] VITALS: BP 98/68; PULSE 80; BMI 30.6
--- NOTE | 2024-09-10 13:37 | MHC.OFFVIS ---
Vital Signs 09/10/24 13:37 Height 5 ft 2 in Weight 167 lb 1.766 oz BMI 30.6 BP 98/68 Blood Pressure Location Rt brachial Position Sitting Pulse 80 Pulse Source Pulse Oximeter Intake Visit Reasons: DM/Confirmed Intake Note: Patient present today for Type 2 Diabetes Mellitus. Last Diabetic eye exam: About 3 years ago Last Podiatry Visit: Doesn't have one Random Glucose: 187 mg/dl HgA1C: 12.6% 08/05/24 Care Transition Manager Required: No Accompanied by: Self / Same As Patient Allergies CATS Allergy (Unknown, Uncoded 09/10/24 13:44) Itching Medication List - Last Reconciled 09/10/24 by Melissa Russell PA-C albuterol sulfate 90 mcg/actuation (ProAir HFA) 1 inh inhalation QID PRN 30 days blood sugar diagnostic (FreeStyle Lite Strips) Use 1 test strip once a day blood-glucose meter (FreeStyle Lite Meter kit) As directed blood-glucose sensor ([employer] G7 Sensor device) Use daily As directed to monitor glucose. change q 10 days diphenhydramine HCl (Banophen) 25 mg PO BEDTIME escitalopram oxalate 20 mg PO BEDTIME 90 days fluticasone propionate 50 mcg/actuation (Flonase Allergy Relief) 1 spray intranasal DAILY 30 days glucose (Dex4 Glucose) 16 grams (4 x 4 gram) PO Q15M PRN hydroquinone 4% 1 appl topical DAILY 30 days insulin glargine (Lantus Solostar U-100 Insulin) 25 units (0.25 mL) subcut QPM 90 days insulin lispro (Humalog KwikPen (U-100) Insulin) 3 units (0.03 mL) subcut TID ketoconazole 2% 1 appl topical BID lancets (FreeStyle Lancets) Use 1 lancet once a day lisinopril 5 mg PO DAILY 90 days meloxicam 15 mg PO DAILY metformin 1,000 mg PO BID 90 days montelukast 10 mg PO DAILY pen needle, diabetic (1st Tier Unifine Pentips) Use 4 pen needle daily as directed sennosides (senna) 8.6 mg PO BEDTIME PRN 90 days valacyclovir 1,000 mg PO BID HPI HPI DM/Confirmed: Details: Patient is a 59-year-old female with a significant past medical history of depression, hypertension, and uncontrolled type 2 diabetes. DM: Was diagnosed with diabetes in October. Last A1c was 12.6. Her diabetes is currently managed with Lantus 10 units (she was supposed to be on 25 units), metformin 1000 mg twice a day, Humalog 3 units with meals dexcom: 24% very high, 35% high, 40% in range, <2% hypoglycemia. She states that the blood sugar was low in the late evening. She has not yet had any diabetic Education. She is scheduled for 09/16. She states she has a fam hx of dm but does not know if it is t1dm or t2dm. She is due to see an ham doctor and tells me she will schedule an appointment. CV: Blood pressure today in the office is 98/68. She is on lisinopril 5 mg. She states that her cholesterol has been diet controlled but she is overdue for cholesterol her last lipid panel was in 2019. [facility] Surgical History History of phacoemulsification of cataract of both eyes with intraocular lens implantation Hx of cataract surgery History of section History of cosmetic surgery Family History Mother Cirrhosis Substance use disorder Father Dementia Social History Housing: Apartment Alcohol intake: never Patient Tobacco Use Status: Former Tobacco user Tobacco use type: Cigarette e-Cigarette/Vaping Use: Never Used Second Hand Smoke Exposure: No service: No Current occupational status: disabled Cognitive needs: No Hearing needs: No Vision needs: No Physical Exam Vital Signs: Last Vital Signs Pulse 80 09/10/24 13:37 BP 98/68 09/10/24 13:37 BMI result Body Mass Index 30.6 Const Orientation/consciousness: patient oriented x3 Neck Neck: Yes no lymphadenopathy Thyroid: Thyroid normal Carotids: no bruits Resp Auscultation: clear to auscultation bilaterally Cardio Rate: regular rate Rhythm: regular rhythm Heart sounds: S1 normal heart sound present and S2 normal heart sound present Peripheral pulses: dorsalis pedis present Neuro General: patient oriented x3, gait normal and no focal motor deficits Extrem Other: Monofilament sensation intact bilaterally. Vibratory sensation intact bilaterally. Skin intact. General: Yes normal to inspection Results Reviewed Results Reviewed: Laboratory Last Values Glucose (Clinic) 187 mg/dL (60-115) H 09/10/24 13:46 Laboratory Tests 08/27/24 14:10 Sodium 139 Potassium 4.2 Chloride 102 Carbon Dioxide 27 Anion Gap 14 BUN 13 Creatinine 0.65 Estimated GFR > 60 Random Glucose 173 H C-Peptide 1.35 AST 21 ALT 23 B-Natriuretic Peptide 80 Islet Cell Ab Screen NEGATIVE STEPHEN Antibody <5 Assessment & Plan Assessment & Plan (1) Uncontrolled type 2 diabetes mellitus with hyperglycemia, with long-term current use of insulin: Code(s): E11.65 - Type 2 diabetes mellitus with hyperglycemia; Z79.4 - senior living (current) use of insulin Category: Medical Plan: Reviewed labs and discuss that testing indicates that she is a type 2 diabetic. I have increased Lantus to 15 units, NovoLog to 4 units 3 times a day. Continue the metformin. We will start Trulicity. Discussed risks and benefits and adverse effects of this medication including nausea, vomiting and increased risk of pancreatitis and endocrine malignancies. Denies any family history of this. Continue with the CGM. Reviewed rule of 15. Has an appointment with diabetic Education next week. Labs ordered as they did not check lipids prior to this appointment. She will do this before I see her. (2) Essential hypertension: Code(s): I10 - Essential (primary) hypertension Category: Medical Plan: Low end normal. She is on lisinopril 5 mg. Did not drink much water today. We will follow up and recheck next month as her last blood pressure was normal. (3) Hyperlipidemia: Code(s): E78.5 - Hyperlipidemia, unspecified Category: Medical Plan: Last LDL I could see in the system was from 2019 and elevated. We will check. Orders: Orders Lipid Panel Today E11.65 - Type 2 diabetes mellitus with hyperglycemia, E78.5 - Hyperlipidemia, unspecified, I10 - Essential (primary) hypertension, Z79.4 - senior living (current) use of insulin Comprehensive Met. Panel Today E11.65 - Type 2 diabetes mellitus with hyperglycemia, E78.5 - Hyperlipidemia, unspecified, I10 - Essential (primary) hypertension, Z79.4 - terminal worker (current) use of insulin Medications: New dulaglutide (Trulicity) 0.75 mg (0.5 mL) subcut QWEEK 2 mL 2RF Changed From insulin glargine (Lantus Solostar U-100 Insulin) 25 units (0.25 mL) subcut QPM 90 days 22.5 mL 0RF E11.9 - Type 2 diabetes mellitus without complications To insulin glargine (Lantus Solostar U-100 Insulin) 15 units (0.15 mL) subcut QPM 90 days 13.5 mL 0RF E11.9 - Type 2 diabetes mellitus without complications From insulin lispro (Humalog KwikPen (U-100) Insulin) with breakfast, lunch and supper 3 units (0.03 mL) subcut TID 15 mL 1RF To insulin lispro (Humalog KwikPen (U-100) Insulin) with breakfast, lunch and supper 4 units (0.04 mL) subcut TID 15 mL 1RF Patient Instructions: increase lantus to 15 units increase humalog to 4 units with breakfast, lunch, and supper continue metformin 1000 mg twice a day start trulicity 0.75 mg weekly. it can cause nausea and vomiting -let me know if you can't tolerate it. there is a risk of pancreatitis (would cause severe abdominal pain/upper/mid back pain, n/v) short term follow up or sooner if you are getting low blood sugars. do blood work a couple days before our appointment Coding Level of Care Code Est Pt Level 4 (62007) Complex EM visit Add On G2211 Diagnoses Uncontrolled type 2 diabetes mellitus with hyperglycemia, with long-term current use of insulin E11.65; Z79.4 Essential hypertension I10 Hyperlipidemia E78.5
[2024-09-10 13:50] LABS: Glucose, Whole Blood 187 mg/dL (60-115)
== END 2024-09-10 14:13 | disposition home or self-care (01) ==
PROVIDERS: PCP Internal Medicine; Visit Provider Physician Assistant
DX: E11.65 Type 2 diabetes mellitus with hyperglycemia (principal); Z79.4 Long term (current) use of insulin; I10 Essential (primary) hypertension; E78.5 Hyperlipidemia, unspecified

== ENCOUNTER → 2024-09-10 13:28 | Outpatient (BNVA) | payer OTHER, SELFPAY | PROVIDERS: PCP Internal Medicine; Visit Provider Physician Assistant | DX: I10 Essential (primary) hypertension (principal); E11.65 Type 2 diabetes mellitus with hyperglycemia; E78.5 Hyperlipidemia, unspecified; Z79.4 Long term (current) use of insulin | CPT/HCPCS: 82947; 99212 ==